=== PATIENT | male | born 1945 | race Caucasian/White ===

== ENCOUNTER 2024-10-03 12:18 | Emergency (ER) | payer OTHER, SELFPAY ==
[2024-10-03 12:24] VITALS: BP 123/57
--- NOTE | 2024-10-03 16:20 | ED.GENMED ---
History of Present Illness
<Carlee Martinez MD, Resident - Last Filed: 10/03/24 19:51>
General
Chief Complaint: Bowel Problem
Source: patient and spouse
Exam Limitations: none
Time Seen by Provider: 10/03/24 16:15
Nursing documentation reviewed up to this point in time: agreed with
History of Present Illness
History of Present Illness:
78yo M with [facility] ulcerative colitis s/p subtotal colectomy (~1999), tongue cancer s/p chemo/radiation who presents from home for abdominal pain and constipation. Since he completed radiation 2 weeks ago, he has been taking 6mg dilaudid every 4-6
hours. He began feeling constipated on Saturday and took mag citrate, which then produced watery bowel movement on Saturday 3 days ago-- this was his last BM. On (10/01) he had abdominal xray at [place] which showed 'moderate stool in the
colon and rectum... Constipation/ileus is considered, less likely obstruction' (xray report reviewed). He also began having abdominal cramping, which has been getting more frequent and more painful. He has been taking metamucil daily.
Past History
<Carlee Martinez MD, Resident - Last Filed: 10/03/24 19:51>
Past History
ED Past Medical History: Cancer (tongue) and Other (ulcerative colitis, ITP)
ED Past Surgical History: Bowel resection (subtotal colectomy ~1999) and Orthopedic (bilateral shoulders)
Patient has exhibited threatening behavior?: No
Social History
Tobacco: Former smoker
Alcohol: Occasional
Drug: None
Personal:
Living: with family
Family History
Family History: Other (noncontributory)
Review of Systems
<Carlee Martinez MD, Resident - Last Filed: 10/03/24 19:51>
Review of Systems
Allergies reviewed?: Yes
Constitutional: Reports no symptoms; Denies fever, fatigue or chills
EENT: Reports no symptoms
Respiratory: Reports no symptoms
Cardiac: Reports no symptoms
ABD/GI: Reports abdominal pain and constipated; Denies nausea, vomiting, bloody stools or black stools
: Reports no symptoms
Musculoskeletal: Reports no symptoms
Skin: Reports no symptoms
Neurological: Reports no symptoms
Endocrine: Reports no symptoms
Hematologic/Lymphatic: Reports no symptoms
Psychiatric: Reports no symptoms
Phy Exam
<Carlee Martinez MD, Resident - Last Filed: 10/03/24 19:51>
General Physical Exam
General Presentation: well appearing and other (appears uncomfortable, nontoxic )
General age: appears stated age
General Skin: warm and dry
General Habitus: normal and elderly
General Mental: alert
General Hydration: appears well hydrated
Cardiovascular Exam
Cardiovascular Exam: regular rate/rhythm
Pulmonary Exam
Pulmonary Exam: lungs clear, no respiratory distress, no crackles, no rhonchi, no wheezing and no cough
Oxygen Status: room air
Gastrointestinal Exam
Gastrointestinal Exam: normal bowel sounds, soft, non distended, tender (mild tenderness to palpation diffusely) and other (no rebound, rigidity, guarding; nonperitonitic )
Rectal Exam: hard stool
Stool: brown
Neurological Exam
Neurological Exam: alert, oriented x3, speech normal and normal gait
Musculoskeletal Exam
Musculoskeletal Exam: edema (trace edema lower extremities symmetric bilaterally)
Psychiatric Exam
Psychiatric Exam: normal mood/affect
Course
<Carlee Martinez MD, Resident - Last Filed: 10/03/24 19:51>
Orders/Labs/Results
Orders:
Orders
10/03/24 16:30
Abdomen Xray - 1 View [CR Abdomen - 1 View] Urgent
Comment:
Reason For Exam: abd pain, evaluate stool burden
10/03/24 17:28
Enema- Treatment ONCE
Type: Milk of Molasses
10/03/24 18:52
Bisacodyl [Dulcolax] 10 mg RECTAL NOW STA
Magnesium Citrate [Citroma] 300 ml PO ONCE ONE
Vital Signs
Initial and Last Documented VS:
Initial Vital Signs
Temp Pulse Resp BP Pulse Ox
97.9 F 87 16 123/57 98
10/03/24 12:24 10/03/24 12:24 10/03/24 12:24 10/03/24 12:24 10/03/24 12:24
Last Documented Vital Signs
Temp Pulse Resp BP Pulse Ox
97.9 F 87 16 123/57 98
10/03/24 12:24 10/03/24 12:24 10/03/24 12:24 10/03/24 12:24 10/03/24 12:24
<Florencio Winters, - Last Filed: 10/03/24 18:53>
Orders/Labs/Results
Orders:
Orders
10/03/24 16:30
Abdomen Xray - 1 View [CR Abdomen - 1 View] Urgent
Comment:
Reason For Exam: abd pain, evaluate stool burden
10/03/24 17:28
Enema- Treatment ONCE
Type: Milk of Molasses
10/03/24 18:52
Bisacodyl [Dulcolax] 10 mg RECTAL NOW STA
Magnesium Citrate [Citroma] 300 ml PO ONCE ONE
Vital Signs
Initial and Last Documented VS:
Initial Vital Signs
Temp Pulse Resp BP Pulse Ox
97.9 F 87 16 123/57 98
10/03/24 12:24 10/03/24 12:24 10/03/24 12:24 10/03/24 12:24 10/03/24 12:24
Last Documented Vital Signs
Temp Pulse Resp BP Pulse Ox
97.9 F 87 16 123/57 98
10/03/24 12:24 10/03/24 12:24 10/03/24 12:24 10/03/24 12:24 10/03/24 12:24
<Carlee Martinez MD, Resident - Last Filed: 10/03/24 19:51>
MDM/Problems Addressed
Differential Diagnosis Includes:
constipation, fecal impaction, ileus
less likely bowel perforation given nonperitonitic exam
MDM/Problems Addressed:
78yo M with [facility] ulcerative colitis s/p subtotal colectomy, tongue cancer s/p chemo/radiation on dilaudid 6mg q4-6h for past 2 weeks now presenting to ED for constipation/abdominal pain
Manual disimpaction performed at bedside-- patient declined having application support consultant present
Will check abdominal xray and give enema
<Carlee Martinez MD, Resident - Last Filed: 10/03/24 19:51>
*Critical Care Note
Total Time (30-74mins, 75-104mins- exclusive of procedures): Not Applicable
<Carlee Martinez MD, Resident - Last Filed: 10/03/24 19:51>
Update Note
Update Note:
1730: Following initial disimpaction, patient reports passing 2 'golf ball' sized stools (one spontaneously and one he manually disimpacted himself). Will give MM enema. Abdominal xray image reviewed, await radiology report.
1820: Radiology report consistent with fecal impaction. S/p MM enema, patient passed additional 3 'golf ball' sized stools. Feels relief, abdominal pain/cramping resolved. Reports minor blood streak on toilet paper, reasonable given
impaction/disimpaction, advised to monitor at home. Stable for discharge home, will need follow up with [facility] for cancer/radiation pain management and with PCP and GI. Prescribed bowel regimen. Discussed above with patient and at bedside--
they are understanding and agreeable with plan.
ED Attending Note
<Carlee Martinez MD, Resident - Last Filed: 10/03/24 19:51>
-
Portions of this chart may have been created with voice recognition software.� Occasional wrong word or��sound alike� substitutions may have occurred due to the inherent limitations of voice recognition software.
<Florencio Winters DO - Last Filed: 10/03/24 18:53>
ED Attending Note
Patient seen and examined by attending physician: Yes
I performed the substantive portion of visit, reviewed & personally made and approve the management plan that is documented in note by myself or NICOLASA.: Yes
Discharge Plan
Departure
Patient Disposition: Home (Routine Discharge)
Date of Disposition: 10/03/24
Time of Disposition: 18:53
Patient with high blood pressure during this ER visit?: No
Discharge Problem:
Fecal impaction in rectum
Instructions: Fecal Impaction (DC), Home Treatments for Constipation When You Have Cancer
Referrals:
Ramesh Coe MD [Family Provider] - Follow up in 5-7 days (Call your primary care provider to schedule appointment within 1 week of being seen in Emergency Room)
Activity Restrictions/Additional Instructions:
You were seen in the Emergency Room for abdominal pain and constipation.
Your abdominal xray showed a fecal impaction.
Your stool was manually disimpacted and you received an enema.
Take magnesium citrate and dulcolax suppository once tomorrow. If no bowel movement in 24 hours, begin miralax two times per day for 5 days.
You can continue daily miralax or as needed to have regular bowel movements.
You should eat fiber-rich foods, drink plenty of water, and use daily bowel regimen-- especially if you are still need opioids for your cancer/radiation pain.
Call your Primary Care Provider to schedule appointment after being seen in Emergency Room.
Also call your doctors at [facility] [facility] to update them, and to change your pain medications if necessary.
Follow up with your GI doctor as needed. Until you talk to them, do not restart immodium.
Return to Emergency Room for worsening symptoms, severe abdominal pain, vomiting, fevers, or for new concerns.
Interventions
Interventions:
*Risk Screen - Suicide Last Done: 10/03/24 12:24
*General Assessment Last Done: 10/03/24 18:15
*Neglect/Abuse Screening Last Done: 10/03/24 12:24
*ED COVID-19 Vaccine History Last Done: 10/03/24 18:15
*Nursing Disposition Last Done: 10/03/24 19:11
NT-Evlqcf-Ihidzhpqbq Assessment Last Done: 10/03/24 18:20
Discharge Date and Time
Discharge Date/Time: 10/03/24 19:11
Print Language: [place]
[2024-10-03] MEDS: DULCOLAX 10 MG RECTAL (19:08)
[2024-10-03] MEDS: CITROMA 300 ML PO (19:09)
== END 2024-10-03 19:11 | disposition home or self-care (01) ==
LOC: EMR 12:18
PROVIDERS: EMERGENCY PHYSICIAN Emergency Medicine; FAMILY PHYSICIAN Family Medicine
DX: K56.41 Fecal impaction (principal); Z87.891 Personal history of nicotine dependence
CPT/HCPCS: 99283; 74018

== ENCOUNTER 2025-06-25 00:58 | Emergency (ER) | payer OTHER, SELFPAY ==
[2025-06-25 01:15] VITALS: BP 167/66
[2025-06-25 01:46] LABS: Hematocrit 43.1 % (39.0-52.0); Hemoglobin 14.9 g/dL (13.0-18.0); Mean Corp Hgb Conc. 34.6 g/dL (33.0-37.0); Mean Corpuscular Volume 91.3 fL (80.0-94.0); Nucleated Red Blood Cells % 0 % (-); Platelet Count 159 10^3/uL (130-400); Red Cell Dist. Width 12.2 % (11.5-14.5)
[2025-06-25 01:59] LABS: ALT (SGPT) 30 U/L (0-50); AST (SGOT) 26 U/L (17-59); Albumin 4.7 g/dl (3.5-5.0); Alkaline Phosphatase 75 U/L (38-126); Blood Urea Nitrogen 27 mg/dl (9-20); Calcium 9.4 mg/dl (8.4-10.2); Carbon Dioxide 25 mmol/L (22-30); Chloride 106 mmol/L (98-107); Glucose 137 mg/dl (70-99); Lipase 136 U/L (23-300); Potassium 4.3 mmol/L (3.5-5.1); Sodium 140 mmol/L (135-145); Total Protein 7.3 g/dl (6.3-8.2); eGFR > 60.00
--- NOTE | 2025-06-25 02:46 | ED.GENMED ---
History of Present Illness
<Jose Lo Jr., PA-C - Last Filed: 06/26/25 19:40>
General
Chief Complaint: Abdominal Pain
Source: patient
Exam Limitations: none
Time Seen by Provider: 06/25/25 01:55
Nursing documentation reviewed up to this point in time: agreed with
History of Present Illness
History of Present Illness:
79-year-old male presenting to the emergency department today with concerns of sudden onset of mid abdominal discomfort and right upper quadrant pain. Did have a colonoscopy 3 days ago without complication. Did have a few polyps removed. Denies
any fevers changes in bowel movements nausea or vomiting.
Past History
<Jose Lo Jr., PA-C - Last Filed: 06/26/25 19:40>
Past History
ED Past Medical History: Cancer (tongue) and Other (ulcerative colitis, ITP)
ED Past Surgical History: Bowel resection (subtotal colectomy ~1999) and Orthopedic (bilateral shoulders)
Patient has exhibited threatening behavior?: No
Social History
Tobacco: Former smoker
Alcohol: Occasional
Drug: None
Personal:
Living: with family
Family History
Family History: Other (noncontributory)
Review of Systems
<Jose Lo Jr., PA-C - Last Filed: 06/26/25 19:40>
Review of Systems
Allergies reviewed?: Yes
All Other Systems: ROS reviewed and negative except as documented in HPI and ROS
Phy Exam
<ALLEN Ching Jr. Last Filed: 06/26/25 19:40>
Physical Exam
Physical Exam:
GENERAL: Alert , in no apparent distress
EYE: pupils equal and reactive
NECK: Supple, no significant adenopathy.
ENT: o/p clr, mmm.
CARDIAC: Regular rate and rhythm .
LUNGS: Clear breath sounds bilaterally, no acute respiratory distress, no wheezes/rales/rhonchi
ABDOMEN: Abdominal pain mainly to the right side of the abdomen in the periumbilical region does have pain to the right upper quadrant.
NEUROLOGICAL: Alert and oriented, no focal neuro deficits
SKIN: Warm and dry, skin intact.
MUSCULOSKELETAL: No edema, well perfused.
PSYCH: Normal and appropriate interaction.
Course
<Jose Lo Jr., PA-C - Last Filed: 06/26/25 19:40>
Orders/Labs/Results
Orders:
Orders
06/25/25 01:25
Electrocardiogram (*1) Urgent
Reason for Study: Abdominal Pain
EKG- Treatment ONCE
IV Insert/Care/Rem.- Treatment PRN
06/25/25 01:37
Complete Blood Count/With Diff Urgent
Comprehensive Metabolic Panel Urgent
Lipase Urgent
06/25/25 02:18
CT Abd/Pel (IV only)-DH only Urgent
Comment:
Reason For Exam: mid abd RUQ pain
06/25/25 02:40
Urinalysis Reflex To Culture Urgent
Date Specimen was Collected: 06/25/25
Time Specimen was Collected: 01:25
Urine Microscopic Reflex Cult Urgent
Urine Culture Urgent
SUJEY Source: U
Specimen Description:
Date Specimen was Collected: 06/25/25
Time Specimen was Collected: 01:25
06/25/25 04:39
US Abdomen Limited Urgent
Reason For Exam: abnormal CT RUQ pain
06/25/25 06:06
Ketorolac [Toradol] 15 mg IV NOW STA
Abnormal Lab Results
06/25/25 06/25/25
01:37 02:40
WBC 13.6 H 10^3/uL
(4.8-10.8)
MCH 31.6 H pg
(27.0-31.0)
Abs Immat Gran (auto) 0.1 H 10^3/uL
(0-0.05)
Absolute Neuts (auto) 12.5 H 10^3/uL
(1.4-6.5)
Absolute Lymphs (auto) 0.4 L 10^3/uL
(1.2-3.4)
Immature Gran % 0.6 H %
(0-0.5)
Neutrophils % 92.2 H %
(42.2-75.2)
Lymphocytes % 2.7 L %
(20.5-51.1)
BUN 27 H mg/dl
(9-20)
Glucose 137 H mg/dl
(70-99)
Urine Ketones 1+ A
(Negative)
Urine Nitrite (Reflex) Positive A
(Negative)
Leukocyte Esterase Rfl 1+ A
(Negative)
Urine WBC (Reflex) 70-80 A /HPF
(0-5)
Urine Albumin (Reflex) 1+ A
(Neg - Trace)
06/25/25 01:37
06/25/25 01:37
Vital Signs
Initial and Last Documented VS:
Initial Vital Signs
Temp Pulse BP Pulse Ox
98 F 71 167/66 98
06/25/25 01:15 06/25/25 01:15 06/25/25 01:15 06/25/25 01:15
Last Documented Vital Signs
Temp Pulse Resp BP Pulse Ox
98.3 F 68 16 151/77 96
06/25/25 06:05 06/25/25 06:05 06/25/25 06:05 06/25/25 06:05 06/25/25 06:05
<Seven Evans, DO - Last Filed: 06/25/25 08:20>
Orders/Labs/Results
Orders:
Orders
06/25/25 01:25
Electrocardiogram (*1) Urgent
Reason for Study: Abdominal Pain
EKG- Treatment ONCE
IV Insert/Care/Rem.- Treatment PRN
06/25/25 01:37
Complete Blood Count/With Diff Urgent
Comprehensive Metabolic Panel Urgent
Lipase Urgent
06/25/25 02:18
CT Abd/Pel (IV only)-DH only Urgent
Comment:
Reason For Exam: mid abd RUQ pain
06/25/25 02:40
Urinalysis Reflex To Culture Urgent
Date Specimen was Collected: 06/25/25
Time Specimen was Collected: 01:25
Urine Microscopic Reflex Cult Urgent
Urine Culture Urgent
SUJEY Source: U
Specimen Description:
Date Specimen was Collected: 06/25/25
Time Specimen was Collected: 01:25
06/25/25 04:39
US Abdomen Limited Urgent
Reason For Exam: abnormal CT RUQ pain
06/25/25 06:06
Ketorolac [Toradol] 15 mg IV NOW STA
Abnormal Lab Results
06/25/25 06/25/25
01:37 02:40
WBC 13.6 H 10^3/uL
(4.8-10.8)
MCH 31.6 H pg
(27.0-31.0)
Abs Immat Gran (auto) 0.1 H 10^3/uL
(0-0.05)
Absolute Neuts (auto) 12.5 H 10^3/uL
(1.4-6.5)
Absolute Lymphs (auto) 0.4 L 10^3/uL
(1.2-3.4)
Immature Gran % 0.6 H %
(0-0.5)
Neutrophils % 92.2 H %
(42.2-75.2)
Lymphocytes % 2.7 L %
(20.5-51.1)
BUN 27 H mg/dl
(9-20)
Glucose 137 H mg/dl
(70-99)
Urine Ketones 1+ A
(Negative)
Urine Nitrite (Reflex) Positive A
(Negative)
Leukocyte Esterase Rfl 1+ A
(Negative)
Urine WBC (Reflex) 70-80 A /HPF
(0-5)
Urine Albumin (Reflex) 1+ A
(Neg - Trace)
06/25/25 01:37
06/25/25 01:37
Vital Signs
Initial and Last Documented VS:
Initial Vital Signs
Temp Pulse BP Pulse Ox
98 F 71 167/66 98
06/25/25 01:15 06/25/25 01:15 06/25/25 01:15 06/25/25 01:15
Last Documented Vital Signs
Temp Pulse Resp BP Pulse Ox
98.3 F 68 16 151/77 96
06/25/25 06:05 06/25/25 06:05 06/25/25 06:05 06/25/25 06:05 06/25/25 06:05
<SAMANTHA Ching Jr.-Sandhya - Last Filed: 06/26/25 19:40>
MDM/Problems Addressed
MDM/Problems Addressed:
79-year-old male presenting with concerns of sudden onset of abdominal pain mainly to the right side of the abdomen over the past few hours prior to arrival no nausea or vomiting. Does have a white count of 13.6 but otherwise normal vital signs.
Labs showing elevated BUN to creatinine ratio but otherwise labs unremarkable. Plan for CT scan for further assessment. CT scan showing wall thickening of the small bowel potentially consistent with enteritis as well as distended gallbladder
without secondary signs of acute cholecystitis. Labs without acute abnormalities normal bilirubin alk phos and LFTs. Symptoms could be consistent with enteritis. Patient did have significant white blood cells on urinalysis and also had some mild
bladder wall thickening on CT he denies any specific urinary symptoms.
<Jose Lo Jr., PA-C - Last Filed: 06/26/25 19:40>
*Pulse Oximetry
SaO2: 98
Oxygen Mode of Delivery: Room air
Patient hypoxic: no (96)
*Critical Care Note
Total Time (30-74mins, 75-104mins- exclusive of procedures): Not Applicable
ED Attending Note
<Jose Lo Jr., PA-C - Last Filed: 06/26/25 19:40>
-
Portions of this chart may have been created with voice recognition software.� Occasional wrong word or��sound alike� substitutions may have occurred due to the inherent limitations of voice recognition software.
<Seven Evans DO - Last Filed: 06/25/25 08:20>
ED Attending Note
Patient seen and examined by attending physician: Yes
I performed the substantive portion of visit, reviewed & personally made and approve the management plan that is documented in note by myself or NICOLASA.: Yes
ED Attending Note:
Seen with PA examined independently, discussed with surgery suspect biliary colic patient offered surgery he would like to go home apparently follow-up as an outpatient will feed him here, make sure he is able to keep foods down,
Discharge Plan
Departure
Patient Disposition: Home (Routine Discharge)
Date of Disposition: 06/25/25
Time of Disposition: 09:11
Patient with high blood pressure during this ER visit?: No
Condition: Good
Discharge Problem:
Abdominal pain in male
Instructions: Urinary tract infection in adults - ED (DC), Gallstones - ED (DC), Abdominal Pain
Prescriptions:
New
amoxicillin-pot clavulanate 875-125 mg tablet
1 tab PO BID Qty: 10 0RF
No Action
Pentasa 250 mg Capsule, Extended Release
750 mg PO TID
acetaminophen [Tylenol] 325 mg Tablet
650 mg PO Q6HPRN PRN (Reason: mild pain)
Metamucil Packet
1 packet PO DAILY
loperamide 2 mg Tablet
2 mg PO DAILY
alprazolam [Xanax] 0.5 mg Tablet
0.5 mg PO BIDPRN PRN (Reason: anxiety)
bismuth subsalicylate [Pepto-Bismol] 262 mg Tablet,Chewable
2 tab PO DAILYPRN PRN (Reason: gerd)
loratadine [Claritin] 10 mg Tablet
10 mg PO DAILY
cholecalciferol (vitamin D3) [Vitamin D3] 25 mcg (1,000 unit) Tablet
25 mcg PO DAILY
eltrombopag olamine [Promacta] 50 mg Tablet
50 mg PO Q48H
Referrals:
Minesh Chong MD [Active, Surgical] - Next open appointment
Ramesh Coe MD [Family Provider, Family Practice]
Activity Restrictions/Additional Instructions:
Grant diet avoid fatty or spicy foods
Follow-up with Dr. Chong general surgeon to discuss your symptoms and schedule gallbladder surgery
Return to the ER for worsening symptoms or any other concerns
Interventions
Interventions:
*Risk Screen - Suicide Last Done: 06/25/25 01:18
*General Assessment Last Done: 06/25/25 01:18
*Neglect/Abuse Screening Last Done: 06/25/25 01:18
*ED- Fall Risk Assessment Last Done: 06/25/25 01:18
*ED COVID-19 Vaccine History Last Done: 06/25/25 01:18
*ED Influenza Vaccine History Last Done: 06/25/25 01:18
*Nursing Disposition Last Done: 06/25/25 10:45
ZM-Jpgqsc-Nmiwirufqo Assessment Last Done: 06/25/25 02:42
Discharge Date and Time
Discharge Date/Time: 06/25/25 10:46
Print Language: IRISH
[2025-06-25 03:21] LABS: Urine Character Clear (Clear)
[2025-06-25 03:35] LABS: Urine White Cell 70-80 /HPF (0-5)
[2025-06-25 03:36] LABS: Urine Red Blood Cell 0-2 /HPF (0-2); Urine Squamous Cell 0-2 /LPF (Few)
[2025-06-25 04:00] VITALS: BP 163/75
[2025-06-25 06:05] VITALS: BP 151/77; BMI 29.4
[2025-06-25] MEDS: TORADOL 15 MG IV (06:14)
--- NOTE | 2025-06-25 09:12 | CON.GS ---
Addendum entered and electronically signed by Minesh Chong MD 06/25/25 09:34:
I saw and examined the patient independently.
The [employer]'s note was reviewed and I agree with the note, assessment and plan except where noted below.
Comment: This is a 79-year-old male with history below who presents with his first episode of postprandial right upper quadrant pain that has since resolved. He is minimally tender on exam in the right upper quadrant. He does have a slight
leukocytosis but his other labs also indicate some degree of hemoconcentration. He does have an ultrasound which shows stones and mild thickening of the gallbladder but sonographic Storey sign is negative. His CT scan shows a mildly distended
gallbladder but no other stigmata of cholecystitis. I have a strong suspicion that this is biliary colic and discussed options of upfront surgery today versus watchful waiting. Though this is only his first attack, I suspect that he will
eventually need his gallbladder out. For now the patient and his have elected to not pursue surgery today and would prefer to follow-up as an outpatient which is reasonable.
Stop pain medication and p.o. challenge. If patient has continued pain we will move forward with a laparoscopic cholecystectomy this admission otherwise, okay to DC home with follow-up with me as an outpatient.
No role for antibiotics on discharge.
All questions answered, patient agreeable to plan of care above.
Dispo per ED
Original Note:
Consultation
-
Date/Time Consultation Performed: 06/25/25 0815
Medical History
-
Chief Complaint: upper abdominal pain
History of Present Illness:
Mr Townsend is a 79 yo male with h/o tongue ca s/p XRT/chemo, ITP and UC s/p lap subtotal colectomy who presented through the ED overnight with abdominal discomfort just above his umbilicus radiating into his RUQ. Last night, he had a hamburger with
his family and developed this pain while driving home. He denies associated nausea, vomiting, or diarrhea. He denies fevers, chills. He denies voiding complaints. He denies prior episodes. His symptoms persisted causing him to present to the ER. He
was given a dose of toradol this morning and had resolution of symptoms since that time. He has very minimal RUQ tenderness on exam.
Past Medical History
Past Medical History: Cancer (tongue s/p xrt/chemo) and Other (ITP, UC)
Past Surgical History: Bowel Resection (lap subtotal colectomy)
Social History
Tobacco: Former Smoker
Alcohol: Occasional
Personal:
Living: With Family
Employment: Other ([employer])
Family History
Family History: Reviewed & Not Pertinent
Allergies / Home Medications
Allergy/AdvReac Type Severity Reaction Status Date / Time
[id number] Reductase Allergy Intermediate Unknown Verified 06/25/25 01:18
Inhibitor
�Medication �Instructions �Recorded �Confirmed �Type
acetaminophen 325 mg tablet 650 mg PO Q6HPRN PRN mild pain 06/25/25 06/25/25 History
(Tylenol)
alprazolam 0.5 mg tablet (Xanax) 0.5 mg PO BIDPRN PRN anxiety 06/25/25 06/25/25 History
bismuth subsalicylate 262 mg 2 tab PO DAILYPRN PRN gerd 06/25/25 06/25/25 History
chewable tablet (Pepto-Bismol)
cholecalciferol (vitamin D3) 25 25 mcg PO DAILY Supplement 06/25/25 06/25/25 History
mcg (1,000 unit) tablet (Vitamin
D3)
eltrombopag olamine 50 mg tablet 50 mg PO Q48H 06/25/25 06/25/25 History
(Promacta)
loperamide 2 mg tablet 2 mg PO DAILY anti-diarrheal 06/25/25 06/25/25 History
loratadine 10 mg tablet (Claritin) 10 mg PO DAILY Allergies 06/25/25 06/25/25 History
mesalamine 250 mg capsule,extended 750 mg PO TID 06/25/25 06/25/25 History
release (Pentasa)
psyllium 1 packet PO DAILY Constipation 06/25/25 06/25/25 History
Review of Systems
-
History Source: Patient and Family
All other systems: Negative unless noted
A 10 point review of systems was completed, and was negative except as per HPI.
Physical Exam
Vital Signs
Temp Pulse Resp BP Pulse Ox
98.3 F 68 16 151/77 96
06/25/25 06:05 06/25/25 06:05 06/25/25 06:05 06/25/25 06:05 06/25/25 06:05
06/24/25 06/25/25 06/26/25
06:59 06:59 06:59
Actual Weight 87.8 kg
Body Mass Index (BMI) 29.4
Lab Results
06/25/25 01:37
06/25/25 01:37
WBC 13.6 10^3/uL (4.8-10.8) H 06/25/25 01:37
Hgb 14.9 g/dL (13.0-18.0) 06/25/25 01:37
Hct 43.1 % (39.0-52.0) 06/25/25 01:37
Plt Count 159 10^3/uL (130-400) 06/25/25 01:37
Abs Immat Gran (auto) 0.1 10^3/uL (0-0.05) H 06/25/25 01:37
Neutrophils % 92.2 % (42.2-75.2) H 06/25/25 01:37
Physical Exam
General: Well Developed and Well Nourished
HEENT: Moist Mucous Membranes
Respiratory: Non Labored Respirations
GI: Soft, Non Distended and Tender (minimal to RUQ)
Skin: Warm
Neuro: Awake, Alert and AO x 3
Psych: Calm
Data Reviewed
-
CT Scan: Image Personally Visualized and interpreted, Report Reviewed by me, Discussed with Physician, Discussed with Patient and Discussed with Family
Ultrasound: Image Personally Visualized and interpreted, Report Reviewed by me, Discussed with Physician and Discussed with Family
Labs: Labs Reviewed by me, Discussed with Physician, Discussed with Patient and Discussed with Family
Assessment / Plan
-
79 yo male presenting with epigastric/abdominal pain after having a hamburger for dinner. US imaging with cholelithiasis, some gb distention but no evidence of cholecystitis. CT imaging without pericholecystic fluid/edema or evidence of
cholecystitis. Afebrile. VSS. Mild leukocytosis of 13.6. LFT's WNL. Suspect biliary colic, first attack.
Discussed operative management with cholecystectomy with patient and his spouse. As this is his first attack, and his pain has resolved without evidence of acute cholecystitis on imaging, this can be done non-emergently. They would like to plan this
after they return from their upcoming trip to [place] which can be arranged.
Plan:
Would recommend low fat diet
Outpatient follow up with surgery
Ok for d/c from surgical standpoint from the ED
== END 2025-06-25 10:46 | disposition home or self-care (01) ==
LOC: EMR 00:58
PROVIDERS: Student in an Organized Health Care Education/Training Program; EMERGENCY PHYSICIAN Emergency Medicine; FAMILY PHYSICIAN Family Medicine; OTHER PHYSICIAN Surgery
DX: R10.11 Right upper quadrant pain (principal); R10.33 Periumbilical pain; K82.8 Other specified diseases of gallbladder; K51.90 Ulcerative colitis, unspecified, without complications; D69.3 Immune thrombocytopenic purpura; M19.90 Unspecified osteoarthritis, unspecified site; Z98.890 Other specified postprocedural states; Z85.810 Personal history of malignant neoplasm of tongue; Z86.0100 Personal history of colon polyps, unspecified; Z87.891 Personal history of nicotine dependence; Z92.3 Personal history of irradiation; Z92.21 Personal history of antineoplastic chemotherapy; Z96.612 Presence of left artificial shoulder joint; Z96.611 Presence of right artificial shoulder joint; Z98.0 Intestinal bypass and anastomosis status; Z88.8 Allergy status to other drugs, medicaments and biological substances
CPT/HCPCS: 99284; 96374; 74177; 76705; 80053; 81003; 81015; 83690; 85025; 87086; 87147; 87186; 93005; Q9967